=== PATIENT | male | born 1965 | race Caucasian/White ===

== ENCOUNTER 2021-11-17 14:08 | Inpatient (IN) | payer OTHER, SELFPAY ==
[~2021-11-17] VITALS: Ht 167.6 cm; Wt 77.1 kg
[2021-11-17 14:47] VITALS: BP 113/70
--- NOTE | 2021-11-17 14:53 | NUR ---
TENT 1.
--- NOTE | 2021-11-17 14:59 | NUR ---
O2 NASAL CANULA 3LPM: O2 SAT 91 AT THIS TIME.
[2021-11-17] MEDS ORDERED: DEXAMETHASONE 4 MG/ML VIAL IVP ONE (15:05)
--- NOTE | 2021-11-17 15:15 | NUR ---
PT MOVED FROM TENT 1 TO ROOM 6
--- NOTE | 2021-11-17 15:37 | NUR ---
influenza and novel swabs done. handed to jan devine.
--- NOTE | 2021-11-17 15:41 | NUR ---
56 yo male c/o moderate, worsening, and constant shortness of breath and cough x 5 days. pt also complains of associated body aches, chills, and chest pain. Patient tested positive for covid 2 days ago. Patient is unvaccinated for covid. in ed, pt tachycardic at 111bpm, tachpneic at 25br/min. pt placed on 3L O2 via nc, saturating at 96%. coarse breath sounds on both lung meyer. pt positioned comfortably in bed with hob elevated to 45 deg. ermd made aware of pt status. pmh: denies nka
[2021-11-17 15:51] LABS: BASOPHILS # (AUTO) 0.2 K/uL (0.00-0.22); BASOPHILS % (AUTO) 1.2 % (0.0-2.0); HEMATOCRIT 45.6 % (36-52); HEMOGLOBIN 15.2 g/dL (12.0-18.0); LYMPHOCYTES # (AUTO) 0.4 K/uL (2.0-11.5); LYMPHOCYTES % (AUTO) 3.6 % (20.5-51.1); MEAN CORPUSCULAR HEMOGLOBIN 28 pg (27-31); MEAN CORPUSCULAR HGB CONC 33 g/dL (33-37); MONOCYTES # (AUTO) 0.4 K/uL (0.8-1.0); NEUTROPHILS # (AUTO) 11.6 K/uL (1.8-7.7); NEUTROPHILS % (AUTO) 92.2 % (42.2-75.2); PLATELET COUNT (AUTO) 375 K/uL (140-450); RED BLOOD CELL COUNT(AUTO) 5.36 MIL/uL (4.20-6.10); RED CELL DISTRIBUTION WIDTH 14.4 % (11.6-13.7); WHITE BLOOD COUNT (AUTO) 12.6 K/uL (4.8-10.8)
[2021-11-17 16:26] LABS: ANION GAP 16.4 (8-16); CARBON DIOXIDE 25.8 mmol/L (21-32); CREATININE 1.3 mg/dL (0.6-1.3); POTASSIUM 4.2 mmol/L (3.5-5.1); TOTAL BILIRUBIN 0.5 mg/dL (0.0-1.0)
--- NOTE | 2021-11-17 16:26 | NUR ---
unable to produce urine specimen at this time.
[2021-11-17] MEDS ORDERED: AZITHROMYCIN 500 MG in DEXTROSE 5% 250 ML IV ONE (16:35)
[2021-11-17] MEDS ORDERED: cefTRIAXone 1,000 MG VIAL ONE (16:40)
[2021-11-17] MEDS ORDERED: AZITHROMYCIN 500 MG INJ VIAL IV ONE (16:40)
[2021-11-17 17:03] LABS: PROTHROMBIN TIME 9.8 secs (10.8-13.4)
[2021-11-17 18:11] LABS: C-REACTIVE PROTEIN QUANT 16.5 mg/dL (0.0-0.9)
[2021-11-17 18:13] LABS: LACTATE DEHYDROGENASE 410 U/L (85-227)
--- NOTE | 2021-11-17 19:19 | NUR ---
REPORT GIVEN TO BRYNN YARBROUGH. ALL CARES TRANSFERRED AT THIS TIME.
[2021-11-17] MEDS ORDERED: ALBUTEROL 0.083% 2.5 MG/3 ML NEBU INH PRN (19:35)
[2021-11-17] MEDS ORDERED: ACETAMINOPHEN 325 MG TAB PO PRN (19:35)
[2021-11-17] MEDS ORDERED: ONDANSETRON 4 MG/2 ML VIAL IVP PRN (19:35)
[2021-11-17] MEDS ORDERED: MORPHINE SULFATE 2 MG/ML SYR IVP PRN (19:35)
[2021-11-17] MEDS ORDERED: remdesivir COMMUNICATION ORDER 1 EA MISC MC PRN (19:40)
[2021-11-17] MEDS ORDERED: LOVENOX 1MG/KG Q12H SUBQ SCH (19:40)
[2021-11-17] MEDS ORDERED: ENOXAPARIN 80 MG/0.8 ML SYR SUBQ SCH (19:40)
--- NOTE | 2021-11-17 20:58 | NUR ---
1910 Assumed patient care, pt here for COVID 19 infection, on assesment pt is aox 4, on high flow O2. Patient denies any pain at this time. VS acceptable. Awaiting for tele bed, with admitting meds ordered. 2049- Pharmacist Abel called to verify order of Lovenox, per pharmacist to dispense 80mg Sc and verify with admitting Doc for the next succeding dose.
[2021-11-18 00:32] LABS: RSV NEGATIVE (NEGATIVE)
[2021-11-18 06:30] LABS: APPEARANCE,URINE CLEAR (CLEAR); BILIRUBIN,URINE NEGATIVE (NEGATIVE); BLOOD, URINE NEGATIVE (NEGATIVE); COLOR,URINE YELLOW (YELLOW); LEUKOCYTE ESTERASE ,URINE NEGATIVE (NEGATIVE); NITRITE, URINE NEGATIVE (NEGATIVE); UGLUCOSE NEGATIVE (NEGATIVE)
--- NOTE | 2021-11-18 07:32 | NUR ---
HAND OFF GIVEN TO BOBBI
[2021-11-18 08:06] LABS: BASOPHILS % (AUTO) 0.9 % (0.0-2.0); EOSINOPHILS % (AUTO) 0.1 % (0.0-4.0); HEMATOCRIT 39.1 % (36-52); HEMOGLOBIN 13.3 g/dL (12.0-18.0); LYMPHOCYTES # (AUTO) 1.2 K/uL (2.0-11.5); LYMPHOCYTES % (AUTO) 21.9 % (20.5-51.1); MEAN CORPUSCULAR HEMOGLOBIN 29 pg (27-31); MEAN CORPUSCULAR HGB CONC 34 g/dL (33-37); MEAN CORPUSCULAR VOLUME 85.5 fL (80-94); MONOCYTES # (AUTO) 0.5 K/uL (0.8-1.0); MONOCYTES % (AUTO) 8.9 % (1.7-9.3); NEUTROPHILS # (AUTO) 3.7 K/uL (1.8-7.7); NEUTROPHILS % (AUTO) 68.2 % (42.2-75.2); PLATELET COUNT (AUTO) 237 K/uL (140-450); RED BLOOD CELL COUNT(AUTO) 4.57 MIL/uL (4.20-6.10); RED CELL DISTRIBUTION WIDTH 14.5 % (11.6-13.7); WHITE BLOOD COUNT (AUTO) 5.5 K/uL (4.8-10.8)
[2021-11-18] MEDS: DEXAMETHASONE 4 MG/ML VIAL IVP SCH (08:39)
[2021-11-18] MEDS: ASCORBIC ACID 500 MG TAB PO SCH (08:40)
[2021-11-18] MEDS: ZINC SULF 220 MG CAP PO SCH (08:41)
[2021-11-18] MEDS: ENOXAPARIN 80 MG/0.8 ML SYR SUBQ SCH ×2 (08:42→22:15)
[2021-11-18] MEDS ORDERED: remdesivir CLINICAL MONITORING 1 EA MISC MC PRN (10:15)
[2021-11-18 10:49] LABS: ANION GAP 17.8 (8-16); CARBON DIOXIDE 26.5 mmol/L (21-32); CREATININE 1.2 mg/dL (0.6-1.3); MAGNESIUM 2.7 mg/dL (1.8-2.4); POTASSIUM 4.3 mmol/L (3.5-5.1); TOTAL BILIRUBIN 0.4 mg/dL (0.0-1.0)
[2021-11-18] MEDS ORDERED: REMDESIVIR. 200 MG in NACL 0.9% 100 ML IV SCH (12:00)
--- NOTE | 2021-11-18 16:29 | NUR ---
PATIENT HAS BEEN SCREENED AND CATEGORIZED MODERATE NUTRITION RISK. PATIENT WILL BE SEEN WITHIN 3-5 DAYS OF ADMISSION. LIAM STE[address] RD
[2021-11-18] MEDS ORDERED: cefTRIAXone 1,000 MG VIAL ONE (16:37)
[2021-11-18] MEDS ORDERED: AZITHROMYCIN 500 MG INJ VIAL IV ONE (17:10)
--- NOTE | 2021-11-18 17:19 | NUR ---
700 ML URINE EMPTED FROM URINAL.
[2021-11-18] MEDS: AZITHROMYCIN 500 MG in DEXTROSE 5% 250 ML IV SCH (17:37)
--- NOTE | 2021-11-18 19:20 | NUR ---
GAVE REPORT TO MURRAY SWAIN.
--- NOTE | 2021-11-18 20:00 | NUR ---
RESTING IN BED WITH EYES OPEN. DENIES COMPLAINTS AT THIS TIME. WATER GIVEN
--- NOTE | 2021-11-19 | NUR ---
RESTING QUIETLY WITH EYES CLOSED. RESPIRATIONS REGULAR AND UNLABORED
[2021-11-19 08:52] LABS: ALBUMIN 2.9 g/dL (3.4-5.0); ANION GAP 16.9 (8-16); CARBON DIOXIDE 25.4 mmol/L (21-32); POTASSIUM 4.3 mmol/L (3.5-5.1); TOTAL BILIRUBIN 0.4 mg/dL (0.0-1.0)
--- NOTE | 2021-11-19 09:48 | NUR ---
pt linens changed at this time, repositioned semifowlers. pt finished breakfast at this time. urinal emptied, dark yellow urine, clear, 1000ml.
[2021-11-19] MEDS: DEXAMETHASONE 4 MG/ML VIAL IVP SCH (09:49)
[2021-11-19] MEDS: ZINC SULF 220 MG CAP PO SCH (09:50)
[2021-11-19] MEDS: ASCORBIC ACID 500 MG TAB PO SCH (09:50)
[2021-11-19] MEDS: ENOXAPARIN 80 MG/0.8 ML SYR SUBQ SCH ×2 (09:51→20:09)
[2021-11-19] MEDS: REMDESIVIR. 100 MG in NACL 0.9% 100 ML IV SCH (12:15)
--- NOTE | 2021-11-19 12:35 | NUR ---
Patient appears to be resting comfortably in bed. Vital Signs within normal limits. Respirations even and unlabored.
--- NOTE | 2021-11-19 13:27 | NUR ---
REPORT RECEIVED FROM ER NURSE SHEREE FOR THIS PT. TRANSFERING FROM ER. PT CAME WITH CC SOB, COUGH. COVID REPID TEST IS NEGATIVE.WAITING FOR PT. ARRIVAL AT THE UNIT.
--- NOTE | 2021-11-19 14:00 | NUR ---
PATIENT ARRIVED ON UNIT VIA GURNEY. RECEIVED PATIENT TO THE BED. PROVIDE COMFORT. ALL SAFETY MEASURES PROVIDED. ATTENDED ALL NEEDS. CALL LIGHT WITHIN REACH. REINFORCED TO USE CALL LIGHT, IF YOU NEEDFOR HELP. VERBALIZED UNDERSTANDING.WILL CONTINUE TO MONITOR THE PT.
--- NOTE | 2021-11-19 14:02 | NUR ---
Patient will be admitted to care of DR. DIAZ. Admited to TELE. Will go to room 128. Belongings list completed. Report to BRYNN LEE.
[2021-11-19 15:00] VITALS: BP 118/74
[2021-11-19] MEDS: AZITHROMYCIN 500 MG in DEXTROSE 5% 250 ML IV SCH (16:02)
--- NOTE | 2021-11-19 17:06 | NUR ---
PT. COMFORTABLY RESTING. NO SIGNS OF DISTRESS NOTED. ALL SAFETY MEASURES IN PLACE. WILL CONTINUE TO MONITOR THE PT.
--- NOTE | 2021-11-19 19:42 | NUR ---
ENDORSED REPORT TO PM SHIFT RN FOR CONTINUITY OF CARE. PT. STABLE.
[2021-11-19 20:00] VITALS: BP 141/73
--- NOTE | 2021-11-19 20:00 | NUR ---
RECEIVED PT FROM DAY SHIFT NURSE FOR CONTINUITY OF CARE. PT AxO 4. PT ON 15L O2 NON REBREATHER MASK. BREATHING UNLABORED WITH O2 SAT AT 94%.URINAL AT BEDSIDE.PT AFEBRILE, NO S/SX OF DISTRESS NOTED.CALL LIGHT WITHIN REACH. ALL PRECAUTIONS IN PLACE.WILL CONTINUE TO MONITOR.
--- NOTE | 2021-11-19 21:30 | NUR ---
SCHEDULED MEDICATIONS GIVEN. PT TOLERATED WELL. ALL PRECAUTIONS IN PLACE. WILL CONTINUE TO MONITOR.O2 SAT AT 96%.
[2021-11-20] VITALS: BP 132/67
--- NOTE | 2021-11-20 | NUR ---
ROUNDS MADE.VITAL SIGNS STABLE. VISIBLE CHEST RISE AND FALL NOTED. NO S/SX OF DISTRESS. O2 SAT AT 99%.ALL PRECAUTIONS IN PLACE. WILL CONTINUE TO MONITOR.
--- NOTE | 2021-11-20 01:55 | NUR ---
PT ASLEEP. VISIBLE CHEST RISE AND FALL NOTED. NO S/SX OF DISTRESS. O2 SAT AT 97%.ALL PRECAUTIONS IN PLACE. CALL LIGHT WITHIN REACH.WILL CONTINUE TO MONITOR.
[2021-11-20 04:00] VITALS: BP 132/78
--- NOTE | 2021-11-20 04:15 | NUR ---
ROUNDS MADE. VITAL SIGNS STABLE. NO S/SX OF DISTRESS NOTED. BREATHING EQUAL AND UNLABORED. O2 SAT AT 97%.
--- NOTE | 2021-11-20 06:22 | NUR ---
PT IS STABLE. NO ACUTE EVENT THROUGHOUT THE NIGHT. NO S/SX OF DISTRESS NOTED. ALL NEEDS MET. ALL PRECAUTIONS IN PLACE. CALL LIGHT WITHIN REACH. WILL ENDORSE TO AM SHIFT NURSE.
[2021-11-20 06:30] LABS: ALBUMIN 2.8 g/dL (3.4-5.0); CARBON DIOXIDE 28.3 mmol/L (21-32); POTASSIUM 4.3 mmol/L (3.5-5.1); TOTAL BILIRUBIN 0.4 mg/dL (0.0-1.0)
--- NOTE | 2021-11-20 07:15 | NUR ---
Received pt alert awake oriented, on o2 15 l non rebreather, skin warm to touch resp. even and unlabored, incentive spirometer given, patient able to used it without difficulty, o2 sat at this time, 97, call light within easy reach, skin intact.
[2021-11-20 08:00] VITALS: BP 124/76
[2021-11-20] MEDS: DEXAMETHASONE 4 MG/ML VIAL IVP SCH (09:32)
[2021-11-20] MEDS: ENOXAPARIN 80 MG/0.8 ML SYR SUBQ SCH ×2 (09:32→23:32)
[2021-11-20] MEDS: ZINC SULF 220 MG CAP PO SCH (09:33)
[2021-11-20] MEDS: ASCORBIC ACID 500 MG TAB PO SCH (09:33)
--- NOTE | 2021-11-20 09:44 | NUR ---
PATIENT WATCHING TV, ABLE TO EAT 75 PERCENT OF HIS BREAKFAST
--- NOTE | 2021-11-20 11:16 | NUR ---
patient using incentive spirometer noted O2 Sat 84%. Encouraged patient to put back the non rebreather. O2 went up to 96%.
[2021-11-20 12:00] VITALS: BP 122/69
[2021-11-20] MEDS: REMDESIVIR. 100 MG in NACL 0.9% 100 ML IV SCH (12:00)
--- NOTE | 2021-11-20 13:13 | NUR ---
PATIENT ABLE TO AMBULATE TO THE BATHROOM, INSTRUCTED TO ASK FOR HELP , INSTRUCTED TO CALL NURSE TO CHEK HIS O2 SAT IF OK TO GO TO BATHROOM , PATIENT AGREED
[2021-11-20] MEDS: BARICITINIB 2 MG TAB PO SCH (15:54)
--- NOTE | 2021-11-20 16:08 | NUR ---
PATIENT RESTING IN BED, O2 SAT 99
[2021-11-20] MEDS: AZITHROMYCIN 500 MG in DEXTROSE 5% 250 ML IV SCH (17:07)
--- NOTE | 2021-11-20 17:12 | NUR ---
PATIENT STAND UP TO URINATE, WITH ON AND OFF COUGHING, ENCOURAGED DEEP BREATHING, PATIENT COOPERATIVE, IV ANTIBIOTIC ONGOING WELL TOLERATED
[2021-11-20 17:35] VITALS: BP 123/71
--- NOTE | 2021-11-20 20:00 | NUR ---
PT ATE 100% OF DINNER.
[2021-11-21 08:00] VITALS: BP 120/76
--- NOTE | 2021-11-21 08:01 | NUR ---
RECEIVED PT FROM NIGHT RN, PT IS AWAKE AND LYING ON THE BED WITH NRB IN PLACE AT 15L O2, SIDE RAILS ARE UP AND CALL LIGHT WITHIN REACH, IV LINE NOTED ON THE RAC G. 22 ON SALINE LOCK, PT IS SATURATING AT 98%, NO SIGN OF DISTRESS NOTED, ON DROPLET ISOLATION FOR COVID POSITIVE, AND WILL CONTINUE TO MONITOR PT.
[2021-11-21] MEDS: ASCORBIC ACID 500 MG TAB PO SCH (08:36)
[2021-11-21] MEDS: DEXAMETHASONE 4 MG/ML VIAL IVP SCH (08:36)
[2021-11-21] MEDS: ZINC SULF 220 MG CAP PO SCH (08:36)
[2021-11-21] MEDS: baricitinib COMM. ORDER 1 EA MISC MC SCH (08:37)
[2021-11-21] MEDS: ENOXAPARIN 80 MG/0.8 ML SYR SUBQ SCH ×2 (08:39→21:21)
--- NOTE | 2021-11-21 08:39 | NUR ---
PT WAS GIVEN THE SCHEDULED AM MEDICATIONS NOW, TOLERATED, PARAMETER CHECKED, WILL CONTINUE TO MONITOR PT.
[2021-11-21 08:49] LABS: ALBUMIN 2.7 g/dL (3.4-5.0); ANION GAP 12.1 (8-16); CREATININE 0.9 mg/dL (0.6-1.3); POTASSIUM 4.1 mmol/L (3.5-5.1); TOTAL BILIRUBIN 0.6 mg/dL (0.0-1.0)
--- NOTE | 2021-11-21 11:23 | NUR ---
(11/21/21) RD INITIAL ASSESSMENT COMPLETED PLEASE REFER TO NUTRITION ASSESSMENT UNDER CARE ACTIVITY FOR ESTIMATED NUTRITIONAL NEEDS. RD RECOMMENDATIONS: 1. CONTINUE CARDIAC DIET TOLERATED 2. CONSULT RDN PRN. 3. RD WILL F/U 3-5 DAYS; MODERATE RISK. SEBASTIÁN ACOSTA MS, RDN
[2021-11-21 12:00] VITALS: BP 136/82
[2021-11-21] MEDS: REMDESIVIR. 100 MG in NACL 0.9% 100 ML IV SCH (12:57)
--- NOTE | 2021-11-21 12:57 | NUR ---
PT WAS GIVEN REMDESIVIR 3RD DOSE NOW VIA IVPB.
--- NOTE | 2021-11-21 14:17 | NUR ---
PT WAS GIVEN ROCEPHIN IVPB NOW.
[2021-11-21] MEDS: BARICITINIB 2 MG TAB PO SCH (14:21)
[2021-11-21] MEDS: AZITHROMYCIN 500 MG in DEXTROSE 5% 250 ML IV SCH (15:09)
--- NOTE | 2021-11-21 15:09 | NUR ---
AZITHROMYCIN IVPB WAS GIVEN NOW.
[2021-11-21 16:00] VITALS: BP 122/79
--- NOTE | 2021-11-21 19:25 | NUR ---
ENDORSED PT TO NIGHT RN FOR CONTINUITY
--- NOTE | 2021-11-21 19:26 | NUR ---
RECD. RESTING IN BED, SLEEPING COMFORTABLY, EASILY AROUSABLE. A/OX4, RESPIRATION EVEN AND UNLABORED. ON 02 AT 15 LITERS NON-REBREATHER MASK, 02 SAT -98%. CALM AND COOPERATIVE. ABLE TO AMBULATE INDEPENDENTLY TO THE . NO APPEARANCE OF PAIN OR DISCOMFORT NOTED, 0/10. WILL CONTINUE TO OBSERVE COVID PROTOCOL.
[2021-11-21 20:00] VITALS: BP 136/80
--- NOTE | 2021-11-21 21:21 | NUR ---
RESTING IN BED, WATCHING TV. SCHEDULED MEDICATION ADMINISTERED. 02 SAT - 99% ON 15 L NON-REBREATHER MASK.
[2021-11-22] VITALS: BP 130/79
--- NOTE | 2021-11-22 | NUR ---
SLEEPING COMFORTABLY, RESPIRATION EVEN AND UNLABORED. CALL LIGHT IN REACH.
--- NOTE | 2021-11-22 02:00 | NUR ---
ON HIS RIGHT SIDE, ASLEEP. NO RESPIRATORY DISTRESS NOTED. 02 SAT - 99%.
[2021-11-22 04:00] VITALS: BP 130/75
--- NOTE | 2021-11-22 04:00 | NUR ---
STILL SLEEPING COMFORTABLY IN BED. NO RESPIRATORY DISTRESS NOTED.
--- NOTE | 2021-11-22 07:00 | NUR ---
CONDITION REMAIN STABLE. WILL ENDORSE TO AM SHIFT NURSE FOR CONTINUITY OF CARE
--- NOTE | 2021-11-22 07:15 | NUR ---
RECEIVED REPORT FROM STREET LIGHT CLEANER NURSE FOR CONTINUITY OF CARE. PT IN BED RESTING AT THIS TIME. RESPIRATIONS ARE EVEN AND UNLABORED. NO SIGNS OF DISTRESS NOTED. NO COMPLAINTS OF PAIN OR DISCOMFORT. CALL LIGHT WITHIN REACH. ALL SAFETY MEASURES IN PLACE. WILL CONTINUE TO MONITOR.
[2021-11-22 08:00] VITALS: BP 118/74
[2021-11-22] MEDS: ZINC SULF 220 MG CAP PO SCH (09:53)
[2021-11-22] MEDS: DEXAMETHASONE 4 MG/ML VIAL IVP SCH (09:53)
[2021-11-22] MEDS: ASCORBIC ACID 500 MG TAB PO SCH (09:53)
[2021-11-22] MEDS: ENOXAPARIN 80 MG/0.8 ML SYR SUBQ SCH ×2 (09:54→21:00)
--- NOTE | 2021-11-22 09:54 | NUR ---
ADMINISTERED ALL SCHEDULED MEDICATIONS. EDUCATED PT REGARDING MEDS ADMINISTERED. ANSWERED ALL QUESTIONS. PT TOLERATED WELL. WILL CONTINUE TO MONITOR.
[2021-11-22] MEDS: baricitinib COMM. ORDER 1 EA MISC MC SCH (09:56)
[2021-11-22 10:15] LABS: ALBUMIN 2.7 g/dL (3.4-5.0); ANION GAP 11.3 (8-16); CARBON DIOXIDE 30.1 mmol/L (21-32); POTASSIUM 4.4 mmol/L (3.5-5.1); TOTAL BILIRUBIN 0.7 mg/dL (0.0-1.0)
[2021-11-22 12:00] VITALS: BP 124/72
[2021-11-22] MEDS: REMDESIVIR. 100 MG in NACL 0.9% 100 ML IV SCH (12:11)
--- NOTE | 2021-11-22 12:11 | NUR ---
IV MEDICATION ADMINISTERED BY RN. WILL CONTINUE TO MONITOR.
[2021-11-22] MEDS: BARICITINIB 2 MG TAB PO SCH (15:12)
[2021-11-22 16:00] VITALS: BP 124/74
--- NOTE | 2021-11-22 16:23 | NUR ---
PT PRESSED CALL LIGHT, STATED HE WOULD LIKE ASSISTANCE WITH AMBULATING TO REST ROOM. ASSISTED PT, PT TOLERATED WELL. NO COMPLAINTS OF SOB. WILL CONTINUE TO MONITOR.
[2021-11-22] MEDS: AZITHROMYCIN 500 MG in DEXTROSE 5% 250 ML IV SCH (16:24)
--- NOTE | 2021-11-22 19:07 | NUR ---
PT IN BED WATCHING TELEVISION. RESPIRATIONS ARE EVEN AND UNLABORED. NO SIGNS OF DISTRESS NOTED. NO COMPLAINTS OF PAIN OR DISCOMFORT NOTED. PT CONTINUES ON 15L 02 HIGH FLOW VIA NC. PT IS STABLE. ALL NEEDS MET THROUGHOUT SHIFT. WILL ENDORSE TO DRAGLINE OILER NURSE.
[2021-11-22 20:00] VITALS: BP 140/83
--- NOTE | 2021-11-22 23:19 | NUR ---
PATIENT AWAKE ALERT NO C/O OF PAIN LUNGS DIMINISH SAT 98% PATIENT ON 3 LITERS N/C NO SIGNS OF SOB. STARTED NEW IV ON PATIENT IN RIGHT HAND 22 GA. OLD SITE LEAKING TAKEN OUT. PATIENT IN ISOLATION FOR COVID +
[2021-11-23] VITALS: BP 135/80
[2021-11-23 04:00] VITALS: BP 140/88
[2021-11-23 07:11] LABS: ALBUMIN 2.8 g/dL (3.4-5.0); ANION GAP 11.7 (8-16); CARBON DIOXIDE 28.8 mmol/L (21-32); CREATININE 0.9 mg/dL (0.6-1.3); POTASSIUM 4.5 mmol/L (3.5-5.1); TOTAL BILIRUBIN 0.7 mg/dL (0.0-1.0)
--- NOTE | 2021-11-23 07:36 | NUR ---
RECEIVED PATIENT FROM ELECTROLESS PLATER NURSE FOR CONTINUITY OF CARE. PATIENT IS ON TELE MONITOR. A/A/O X4. RESPIRATORY EVEN AND UNLABORED, ON 3L OXYGEN VIA NC. NO SIGN OF DISTRESS NOTED. SKIN WARM, DRY, NON DIAPHORETIC. IV ON RIGHT HAND 22G, INTACT AND PATENT, SALINE LOCK. PATIENT DENIES ANY PAIN OR DISCOMFORT. ABLE TO MAKE NEED KNOWN. PLAN OF CARE DISCUSSED, PATIENT VERBALIZED UNDERSTANDING. PRECAUTION IN PLACE. CALL LIGHT WITHIN REACH. WILL CONTINUE TO MONITOR.
[2021-11-23 08:00] VITALS: BP 116/74
[2021-11-23] MEDS: ENOXAPARIN 80 MG/0.8 ML SYR SUBQ SCH ×2 (08:16→20:08)
--- NOTE | 2021-11-23 08:16 | NUR ---
SCHEDULE MEDICATIONS GIVEN WITH EDUCATION. PATIENT VERBALIZED UNDERSTANDING. PATIENT TOLERATED WELL. PRECAUTION IN PLACE. CALL LIGHT WITHIN REACH. WILL CONTINUE TO MONITOR.
[2021-11-23] MEDS: ZINC SULF 220 MG CAP PO SCH (08:19)
[2021-11-23] MEDS: ASCORBIC ACID 500 MG TAB PO SCH (08:19)
[2021-11-23] MEDS: DEXAMETHASONE 4 MG/ML VIAL IVP SCH (08:20)
--- NOTE | 2021-11-23 10:20 | NUR ---
PATIENT IS RESTING IN BED, NO SIGN OF DISTRESS NOTED, O2 SAT 93%. PRECAUTION IN PLACE. CALL LIGHT WITHIN REACH. WILL CONTINUE TO MONITOR.
[2021-11-23 12:00] VITALS: BP 121/76
--- NOTE | 2021-11-23 12:30 | NUR ---
PATIENT IS AWAKE, USING CELL PHONE. NO SIGN OF DISTRESS NOTED. PRECAUTION IN PLACE. CALL LIGHT WITHIN REACH. WILL CONTINUE TO MONITOR.
--- NOTE | 2021-11-23 14:30 | NUR ---
PATIENT IS RESTING IN BED, NO SIGN OF DISTRESS NOTED. PRECAUTION IN PLACE. CALL LIGHT WITHIN REACH. WILL CONTINUE TO MONITOR.
[2021-11-23] MEDS: BARICITINIB 2 MG TAB PO SCH (15:37)
[2021-11-23 16:00] VITALS: BP 125/78
--- NOTE | 2021-11-23 16:20 | NUR ---
PATIENT IS AWAKE, RESTING IN BED, NO SIGN OF DISTRESS NOTED, O2 SAT 95%. PRECAUTION IN PLACE. CALL LIGHT WITHIN REACH. WILL CONTINUE TO MONITOR.
--- NOTE | 2021-11-23 19:10 | NUR ---
ENDORSED PATIENT TO WATER SOFTENER SERVICER AND INSTALLER NURSE FOR CONTINUITY OF CARE. PATIENT IS STABLE.
--- NOTE | 2021-11-23 19:25 | NUR ---
RECEIVED BEDSIDE REPORT FROM DAY SHIFT NURSE. PATIENT IS AWAKE, ALERT, AND COOPERATIVE. RESPIRATION EVEN UNLABORED ON 3L NC O2. SATING 95% NO DISTRESS NOTED. SKIN IS WARM AND DRY. IV PATENT AND INTACT. PLAN OF CARE WAS DISCUSSED. ALL SAFETY MEASURES IN PLACE. BED IS AT LOW POSITION, CALL LIGHT WITHIN REACH. WILL CONTINUE TO MONITOR.
[2021-11-23 20:00] VITALS: BP 127/79
--- NOTE | 2021-11-23 20:10 | NUR ---
ALL SCHEDULED MEDS WERE GIVEN PER ORDER. WILL CONTINUE TO MONITOR
--- NOTE | 2021-11-23 20:55 | NUR ---
PT LAYING IN BED HOB ELEVATED, BS CLEAR THROUGHOUT, NO SIGNS OF RESPIRATORY DISTRESS NOTED AT THIS TIME. PT IS CURRENTLY SATING 97% WILL CONTINUE TO MONITOR.
--- NOTE | 2021-11-23 21:00 | NUR ---
MADE ROUNDS. PATIENT IS AWAKE, WATCHING TV, NO DISTRESS NOTED. WILL CONTINUE TO MONITOR.
[2021-11-24] VITALS: BP 129/83
--- NOTE | 2021-11-24 00:08 | NUR ---
VITALS WERE TAKEN. NO DISTRESS NOTED
--- NOTE | 2021-11-24 02:01 | NUR ---
MADE ROUNDS, PATIENT SLEEPING NO DISTRESS NOTED
[2021-11-24 04:00] VITALS: BP 120/78
--- NOTE | 2021-11-24 04:20 | NUR ---
VITALS WERE TAKEN. NO DISTRESS NOTED.
--- NOTE | 2021-11-24 05:11 | NUR ---
AM CARE PROVIDED
[2021-11-24 06:53] LABS: BASOPHILS % (AUTO) 0.3 % (0.0-2.0); EOSINOPHILS % (AUTO) 0.3 % (0.0-4.0); HEMATOCRIT 38.3 % (36-52); HEMOGLOBIN 13.3 g/dL (12.0-18.0); LYMPHOCYTES # (AUTO) 1.5 K/uL (2.0-11.5); MEAN CORPUSCULAR HEMOGLOBIN 31 pg (27-31); MEAN CORPUSCULAR HGB CONC 35 g/dL (33-37); MEAN CORPUSCULAR VOLUME 90.1 fL (80-94); MONOCYTES # (AUTO) 1.1 K/uL (0.8-1.0); MONOCYTES % (AUTO) 8.2 % (1.7-9.3); NEUTROPHILS # (AUTO) 10.7 K/uL (1.8-7.7); NEUTROPHILS % (AUTO) 80.2 % (42.2-75.2); PLATELET COUNT (AUTO) 903 K/uL (140-450); RED BLOOD CELL COUNT(AUTO) 4.25 MIL/uL (4.20-6.10); RED CELL DISTRIBUTION WIDTH 14.3 % (11.6-13.7); WHITE BLOOD COUNT (AUTO) 13.3 K/uL (4.8-10.8)
[2021-11-24 07:00] LABS: ALBUMIN 2.6 g/dL (3.4-5.0); ANION GAP 13.6 (8-16); POTASSIUM 4.6 mmol/L (3.5-5.1); TOTAL BILIRUBIN 0.6 mg/dL (0.0-1.0)
--- NOTE | 2021-11-24 07:35 | NUR ---
ENDORSED PATIENT TO DAY SHIFT NURSE FOR CONTINUITY OF CARE
--- NOTE | 2021-11-24 07:36 | NUR ---
RECEIVED PATIENT FROM ETL APPLICATION DEVELOPER NURSE FOR CONTINUITY OF CARE. PATIENT IS ON TELE MONITOR. A/A/O X4. RESPIRATORY EVEN AND UNLABORED, ON 3L OXYGEN VIA NC, O2 SAT 94%. NO SIGN OF DISTRESS NOTED. SKIN WARM, DRY, NON DIAPHORETIC. IV ON RIGHT HAND 22G, INTACT AND PATENT, SALINE LOCK. PATIENT DENIES ANY PAIN OR DISCOMFORT. DENIES ANY SOB AT THIS TIME. ABLE TO MAKE NEED KNOWN. PLAN OF CARE DISCUSSED, PATIENT VERBALIZED UNDERSTANDING. PRECAUTION IN PLACE. CALL LIGHT WITHIN REACH. WILL CONTINUE TO MONITOR.
[2021-11-24 08:00] VITALS: BP 121/75
[2021-11-24] MEDS: ASCORBIC ACID 500 MG TAB PO SCH (08:10)
[2021-11-24] MEDS: ZINC SULF 220 MG CAP PO SCH (08:10)
[2021-11-24] MEDS: DEXAMETHASONE 4 MG/ML VIAL IVP SCH (08:11)
[2021-11-24] MEDS: ENOXAPARIN 80 MG/0.8 ML SYR SUBQ SCH (08:18)
--- NOTE | 2021-11-24 08:18 | NUR ---
SCHEDULE MEDICATIONS GIVEN WITH EDUCATION. PATIENT VERBALIZED UNDERSTANDING. PATIENT TOLERATED WELL. NO SIGN OF DISTRESS NOTED. PRECAUTION IN PLACE. CALL LIGHT WITHIN REACH. WILL CONTINUE TO MONITOR.
--- NOTE | 2021-11-24 10:20 | NUR ---
PATIENT IS RESTING IN BED, NO SIGN OF DISTRESS NOTED. PRECAUTION IN PLACE. CALL LIGHT WITHIN REACH. WILL CONTINUE TO MONITOR.
[2021-11-24] MEDS ORDERED: APIX5TAB PO (11:22)
[2021-11-24] MEDS ORDERED: BUDE1AER IH (11:22)
[2021-11-24] MEDS ORDERED: PRED20TA5 PO (11:23)
--- NOTE | 2021-11-24 11:29 | NUR ---
DC PLANNING: CM SPOKE WITH THE PATIENTS BY PHONE REGARDING DC PLANNING. THE PATIENT LIVES IN A FIRST FLOOR APARTMENT WITH HIS AND THREE ADULT CHILDREN. THE PATIENT WAS INDEPENDENT IN ALL ACTIVITIES PRIOR TO BEING HOSPITALIZED AND HAS NO H/O HOME HEALTH OR DME USE. THE PATIENT IS SATTING AT 92% ON RA PER RT NOTES AND DOES NOT QUALIFY FOR HOME O2. DC PLAN IS FOR PATIENT TO RETURN HOME WHEN CLINICALLY STABLE, NOW ON RA AND DECADRON IV, NO OTHER IV MEDICATIONS. CTA NEGATIVE FOR EMBOLUS. CM WILL FOLLOW FOR NEEDS.
[2021-11-24 12:00] VITALS: BP 113/60
--- NOTE | 2021-11-24 12:10 | NUR ---
PATIENT IS HAVING LUNCH, NO SIGN OF DISTRESS NOTED. O2 SAT 95%. PRECAUTION IN PLACE. CALL LIGHT WITHIN REACH. WILL CONTINUE TO MONITOR.
[2021-11-24] MEDS: BARICITINIB 2 MG TAB PO SCH (15:30)
--- NOTE | 2021-11-24 15:30 | NUR ---
SCHEDULE MEDICATION GIVEN WITH EDUCATION. PATIENT VERBALIZED UNDERSTANDING. PATIENT TOLERATED WELL. NO SIGN OF DISTRESS NOTED. PRECAUTION IN PLACE. CALL LIGHT WITHIN REACH. WILL CONTINUE TO MONITOR.
[2021-11-24 16:00] VITALS: BP 114/79
--- NOTE | 2021-11-24 17:12 | NUR ---
DISCHARGE EDUCATION GIVEN, PATIENT VERBALIZED UNDERSTANDING. IV REMOVED, BLEEDING CONTROL. ID BAND REMOVED. HANDOUT GIVEN. ALL QUESTIONS WERE ANSWERED.
--- NOTE | 2021-11-24 17:20 | NUR ---
DISCHARGE PATIENT TO FAMILY BY WHEELCHAIR. A/A/O X4. RESPIRATORY EVEN AND UNLABORED, ON ROOM AIR. NO SIGN OF DISTRESS NOTE.
== END 2021-11-24 17:20 | disposition home or self-care (01) | DRG 137 ==
LOC: MED 14:08 → MTU 19:37 → MMU 11-19 13:12
PROVIDERS: ADMIT Hospitalist; ATTEND Hospitalist
PROC: XW033E5 Introduction of Remdesivir Anti-infective into Peripheral Vein, Percutaneous Approach, New Technology Group 5 (ICD-10-PCS; principal; 2021-11-18)
DX: U07.1 COVID-19 (principal); J96.01 Acute respiratory failure with hypoxia; J12.82 Pneumonia due to coronavirus disease 2019; R53.1 Weakness; R74.01 Elevation of levels of liver transaminase levels; E87.2 Acidosis
CPT/HCPCS: 36415; 36600; 71045; 80053; 81003; 82550; 82803; 83605; 83615; 83735; 83880; 84100; 84484; 85025; 85379; 85384; 85610; 85730; 86140; 87040; 87086; 87420; 93005; 96365; 96367; 96375; 99291; J0456; J0696; J1100; J1650; J7060; U0003